=== PATIENT | male | born 1960 | race Caucasian/White ===

== ENCOUNTER → 2020-02-17 | Outpatient (CLI) | payer OTHER | LOC: LAB 10:42 | DX: N50.82 Scrotal pain (principal); N50.811 Right testicular pain; N50.89 Other specified disorders of the male genital organs; I86.1 Scrotal varices ==

== ENCOUNTER → 2022-05-23 | Outpatient (CLI) | payer MEDICARE ==
[2022-05-23 12:30] LABS: BASO # 0.01 K/mm3 (0.02-0.10); EOS # 0.13 K/mm3 (0.04-0.40); EOS % 2.9 % (0.0-4.0); HEMATOCRIT 43.7 % (42.0-52.0); HEMOGLOBIN 14.6 g/dL (13.5-18.0); LYMPH# 1.39 K/mm3 (1.50-4.00); MEAN CELL VOLUME 93 fl (78-100); MEAN CORPUSCULAR HEMOGLOBIN 31 pg (27-31); MEAN CORPUSCULAR HGB CONC 33 g/dL (33-37); NEU # 2.54 K/mm3 (1.40-6.50); PLATELET COUNT 214 K/mm3 (130-400); RED BLOOD COUNT 4.69 M/mm3 (4.20-5.60); RED CELL DISTRIBUTION WIDTH 13.2 % (11.5-14.5); WHITE BLOOD COUNT 4.5 K/mm3 (4.8-10.8)
[2022-05-23 12:36] LABS: ALBUMIN 4.2 g/dL (3.4-4.8)
[2022-05-23 12:37] LABS: CALCIUM 9.7 mg/dL (8.3-10.5)
[2022-05-23 12:38] LABS: TOTAL PROTEIN 6.8 g/dL (6.2-8.1)
[2022-05-23 12:40] LABS: TOTAL BILIRUBIN 0.5 mg/dL (0.2-1.2)
[2022-05-23 12:45] LABS: MAGNESIUM 2.01 mg/dL (1.60-2.60)
[2022-05-23 13:46] LABS: URINE APPEARANCE CLEAR; URINE BILIRUBIN NEGATIVE (NEGATIVE); URINE BLOOD NEGATIVE (NEGATIVE); URINE COLOR YELLOW; URINE GLUCOSE NEGATIVE (NEGATIVE); URINE KETONE NEGATIVE (NEGATIVE); URINE LEUKOCYTE ESTERASE NEGATIVE (NEGATIVE); URINE MUCUS PRESENT (NOT PRESENT); URINE NITRATE NEGATIVE (NEGATIVE); URINE PROTEIN(semi-quant) TRACE (NEGATIVE)
[2022-05-23 22:03] LABS: TESTOSTERONE 106 ng/dL (221-716)
== END ==
LOC: LAB 11:59
PROVIDERS: Internal Medicine
DX: Z00.00 Encounter for general adult medical examination without abnormal findings (principal); Z12.5 Encounter for screening for malignant neoplasm of prostate; I48.0 Paroxysmal atrial fibrillation; E78.2 Mixed hyperlipidemia; E03.9 Hypothyroidism, unspecified; I10 Essential (primary) hypertension; G47.33 Obstructive sleep apnea (adult) (pediatric); R06.00 Dyspnea, unspecified; K90.9 Intestinal malabsorption, unspecified; F52.21 Male erectile disorder; R73.03 Prediabetes

== ENCOUNTER → 2023-06-11 | Outpatient (CLI) | payer MEDICARE ==
[2023-06-11 09:59] LABS: BASO # 0.01 K/mm3 (0.02-0.10); EOS # 0.14 K/mm3 (0.04-0.40); EOS % 2.9 % (0.0-4.0); HEMATOCRIT 46.3 % (42.0-52.0); HEMOGLOBIN 15.1 g/dL (13.5-18.0); LYMPH# 1.46 K/mm3 (1.50-4.00); MEAN CELL VOLUME 94 fl (78-100); MEAN CORPUSCULAR HEMOGLOBIN 31 pg (27-31); MEAN CORPUSCULAR HGB CONC 33 g/dL (33-37); MEAN PLATELET VOLUME 8.6 fl (7.4-10.4); NEU # 2.63 K/mm3 (1.40-6.50); PLATELET COUNT 219 K/mm3 (130-400); RED BLOOD COUNT 4.93 M/mm3 (4.20-5.60); RED CELL DISTRIBUTION WIDTH 13.2 % (11.5-14.5); WHITE BLOOD COUNT 4.8 K/mm3 (4.8-10.8)
[2023-06-11 10:05] LABS: ALBUMIN 4.4 g/dL (3.4-4.8)
[2023-06-11 10:06] LABS: CALCIUM 9.7 mg/dL (8.3-10.5)
[2023-06-11 10:08] LABS: TOTAL PROTEIN 7.1 g/dL (6.2-8.1)
[2023-06-11 10:09] LABS: TOTAL BILIRUBIN 0.4 mg/dL (0.2-1.2)
[2023-06-11 22:39] LABS: HEPATITIS C VIRUS ANTIBODY Negative (Negative)
== END ==
LOC: LAB 09:45
PROVIDERS: Internal Medicine
DX: Z12.11 Encounter for screening for malignant neoplasm of colon (principal); Z11.59 Encounter for screening for other viral diseases; Z11.4 Encounter for screening for human immunodeficiency virus [HIV]; E03.9 Hypothyroidism, unspecified; E78.2 Mixed hyperlipidemia; K90.9 Intestinal malabsorption, unspecified

== ENCOUNTER → 2023-06-12 | Outpatient (CLI) | payer MEDICARE | LOC: AMSURD 13:47 | DX: Z79.899 Other long term (current) drug therapy (principal) ==

== ENCOUNTER → 2023-06-19 | Outpatient (CLI) | payer MEDICARE ==
[2023-06-19 11:36] LABS: CALCIUM 9.6 mg/dL (8.3-10.5)
== END ==
LOC: LAB 11:09
PROVIDERS: Internal Medicine Cardiovascular Disease
DX: Z12.11 Encounter for screening for malignant neoplasm of colon (principal); Z79.899 Other long term (current) drug therapy

== ENCOUNTER → 2024-06-16 | Outpatient (CLI) | payer MEDICARE ==
[2024-06-16 10:07] LABS: BASO # 0.01 K/mm3 (0.02-0.10); EOS # 0.15 K/mm3 (0.04-0.40); EOS % 3.2 % (0.0-4.0); HEMATOCRIT 42.8 % (42.0-52.0); HEMOGLOBIN 14.3 g/dL (13.5-18.0); LYMPH# 1.28 K/mm3 (1.50-4.00); MEAN CELL VOLUME 93 fl (78-100); MEAN CORPUSCULAR HEMOGLOBIN 31 pg (27-31); MEAN CORPUSCULAR HGB CONC 33 g/dL (33-37); MEAN PLATELET VOLUME 8.7 fl (7.4-10.4); MONO # 0.42 K/mm3 (0.20-0.80); NEU # 2.82 K/mm3 (1.40-6.50); PLATELET COUNT 215 K/mm3 (130-400); RED CELL DISTRIBUTION WIDTH 13.2 % (11.5-14.5); WHITE BLOOD COUNT 4.7 K/mm3 (4.8-10.8)
[2024-06-16 10:12] LABS: ALBUMIN 4.3 g/dL (3.4-4.8)
[2024-06-16 10:13] LABS: CALCIUM 9.4 mg/dL (8.3-10.5)
[2024-06-16 10:14] LABS: TOTAL PROTEIN 7.5 g/dL (6.2-8.1)
[2024-06-16 10:16] LABS: TOTAL BILIRUBIN 0.4 mg/dL (0.2-1.2)
[2024-06-16 10:30] LABS: PH-URINE 5.5 (5.0 - 8.0); URINE APPEARANCE CLEAR (CLEAR); URINE COLOR YELLOW (YELLOW)
[2024-06-16 10:31] LABS: URINE BILIRUBIN 1+ (NEGATIVE); URINE BLOOD NEGATIVE (NEGATIVE); URINE GLUCOSE NEGATIVE (NEGATIVE); URINE KETONE TRACE (NEGATIVE); URINE LEUKOCYTE ESTERASE NEGATIVE (NEGATIVE); URINE MUCUS PRESENT (NOT PRESENT); URINE NITRATE NEGATIVE (NEGATIVE); URINE PROTEIN(semi-quant) NEGATIVE (NEGATIVE)
== END ==
LOC: LAB 09:45
PROVIDERS: Internal Medicine
DX: E78.2 Mixed hyperlipidemia (principal); E03.9 Hypothyroidism, unspecified; I10 Essential (primary) hypertension; K90.9 Intestinal malabsorption, unspecified; R73.03 Prediabetes; R89.1 Abnormal level of hormones in specimens from other organs, systems and tissues